=== PATIENT | male | born 1980 | race Caucasian/White ===

== ENCOUNTER 2022-12-07 08:49 | Emergency (ER) | payer OTHER, SELFPAY ==
[2022-12-07 08:55] VITALS: BP 136/86; PULSE 72; RESP 18; TEMP 36.8; O2SAT 95; BMI 35.9
--- NOTE | 2022-12-07 09:01 | ED.UPPEXIN1 ---
HPI - Extremity Injury (Upper) General Chief Complaint: Extremity Injury, Upper Stated Complaint: FALL UPPER EXTREMITY INJURY RIGHT ARM Time Seen by Provider: 12/07/22 09:01 Source: patient Mode of arrival: walk-in Limitations: no limitations History of Present Illness HPI narrative: Patient stumbled yesterday on a grassy hill he fell and did not have loss of consciousness. He denies any other injury except left wrist pain. Pain is worse with movement. He is left took Motrin this morning noted swelling and pain so he came in for evaluation. he denies any numbness. Related Data Previous Rx's Medication Instructions Recorded ibuprofen 800 mg tablet (IBU) 800 mg PO Q8H PRN pain #20 tabs 12/07/22 Allergies Allergy/AdvReac Type Severity Reaction Status Date / Time Penicillins Allergy Intermediate Verified 12/07/22 08:55 Review of Systems ROS Status of ROS 10 or more systems reviewed and unremarkable except as noted in history and below Exam Narrative Exam Narrative: Nurses notes and vital signs reviewed and patient is not hypoxic. General: Nontoxic, Well-appearing and in no apparent distress. Skin: Warm, dry, no pallor noted. No Rash Head: Normocephalic, atraumatic. Neck: Supple, non-tender. Eye: Pupils are equal, round and EOMI. No scleral icterus. Ears, Nose, Mouth, and Throat: TM clear, no posterior oropharynx erythema or nasal mucosal hypertrophy, uvula is mid-line Oral mucosa is moist Cardiovascular: Regular Rate and Rhythm without murmur, gallop or rub. Respiratory: No accessory muscle use or respiratory distress. Lungs are clear to auscultation, no wheezing, rales or rhonchi Chest Wall: no tenderness Back: No midline thoracic or lumbar vertebral tenderness. No CVA tenderness Musculoskeletal: Tenderness to palpation to the left lateral wrist. Dorsum aspect is worse. Patient is able to oppose all digits with him. Apparently refill is brisk. Radial pulse +2, no pain over the snuffbox. Range of motion is limited by pain. no calf or popliteal tenderness, no lower extremity edema/swelling GI: Abdomen is soft, non-distended. Normal bowel sounds. No masses appreciated. No tenderness to palpation. No rebound, guarding, or rigidity noted. Neurological: A&O x4. No cranial nerve dysfunction observed. No truncal ataxia. Moves all extremities. Sensation intact. Psychiatric: Cooperative and interactive. Normal mood and affect. Constitutional Vital Signs - 24 hr 12/07/22 08:55 Temperature 98.3 F Pulse Rate [Monitor] 72 Respiratory Rate 18 Blood Pressure [Right Arm] 136/86 H Pulse Oximetry 95 Oxygen Delivery Method Room Air Course Vital Signs Vital signs: Vital Signs Temperature 98.3 F 12/07/22 08:55 Pulse Rate 72 12/07/22 08:55 Respiratory Rate 18 12/07/22 08:55 Blood Pressure 136/86 H 12/07/22 08:55 Pulse Oximetry 95 12/07/22 08:55 Oxygen Delivery Method Room Air 12/07/22 08:55 Temperature 98.3 F 12/07/22 08:55 Pulse Rate 72 12/07/22 08:55 Respiratory Rate 18 12/07/22 08:55 Blood Pressure 136/86 H 12/07/22 08:55 Pulse Oximetry 95 12/07/22 08:55 Oxygen Delivery Method Room Air 12/07/22 08:55 MDM - Extremity Injury (Upper) MDM Narrative Medical decision making narrative: X-ray results discussed with patient. He is follow-up with orthopedic. Placed on the splint. Advised rice and given a prescription for Motrin. At this time the patient is without objective evidence of an acute process requiring hospitalization or inpatient management. The patient has remained hemodynamically stable. No additional indication for emergent studies at this time. I answered all questions. Discussed discharge instructions including standard anticipatory guidance and what should prompt a return to the emergency department, including if they get worse are not getting better or develops any new or concerning symptoms. I've given them specific time frame in which to follow-up, and who to follow-up with. The patient demonstrates understanding. Patient is nontoxic and stable for discharge with outpatient follow-up. This note was created with the assistance of a speech recognition program. Although the intention is to generate documents that actually reflects the content of the visit, no guarantees can be provided that every mistake has been identified and corrected by editing. Discharge Plan Discharge Chief Complaint: Extremity Injury, Upper Clinical Impression: Fracture of triquetral bone of left wrist Patient Disposition: Home, Self-Care Time of Disposition Decision: 09:42 Condition: Good Mode of Transportation: Private Vehicle Prescriptions / Home Meds: New ibuprofen [IBU] 800 mg tablet 800 mg PO Q8H PRN (Reason: pain) Qty: 20 0RF Instructions: Wrist Fracture in Adults (ED) Stand Alone Forms: Portal Instructions Referrals: Jaime Youssef MD [Primary Care Provider] - 1 week HARITHA GAINES [Physician] - 1 week
--- NOTE | 2022-12-07 09:04 | XR_ITS ---
The [address] [address] Patient Name: WALE WILSON MRN: [id number] date: 1980 Sex: M Assigned Patient Location: ER Current Patient Location: ER Accession/Order Number: [id number] Exam Date: 12/07/2022 09:18 Report Date: 12/07/2022 09:36 At the request of: BENNY GODFREY Procedure: XR wrist LT min 3V EXAM: XR wrist LT min 3V CLINICAL HISTORY: Pain post injury. COMPARISON: None TECHNIQUE: X-ray FINDINGS: There is an approximately 8 mm fracture fragment posterior to the carpal bones on the lateral view. There is overlying soft tissue swelling. IMPRESSION: Posterior triquetral fracture. Electronically authenticated by: ANGELIQUE RAM Date: 12/07/2022 09:36
== END 2022-12-07 10:09 | disposition home or self-care (01) ==
PROVIDERS: Emergency Provider Emergency Medicine; PCP Family Medicine
DX: S62.112A Displaced fracture of triquetrum [cuneiform] bone, left wrist, initial encounter for closed fracture (principal); W01.0XXA Fall on same level from slipping, tripping and stumbling without subsequent striking against object, initial encounter
CPT/HCPCS: 73110; 99283